=== PATIENT | female | born 1955 | race African-American/Black ===

== ENCOUNTER 2016-05-22 17:26 | Emergency (ER) | payer MEDICAID ==
[~2016-05-22] VITALS: Ht 167.6 cm; Wt 77.1 kg
[~2016-05-22 17:26] MED LIST: HYDR12.527 PO
[2016-05-22 17:52] VITALS: BP 116/82
== END 2016-05-22 19:17 | disposition home or self-care (01) ==
LOC: ER 17:43
DX: J40 Bronchitis, not specified as acute or chronic (principal); I10 Essential (primary) hypertension; R42 Dizziness and giddiness
CPT/HCPCS: 71020

== ENCOUNTER 2016-11-13 18:22 | Emergency (ER) | payer MEDICAID ==
[~2016-11-13] VITALS: Ht 167.6 cm; Wt 80.7 kg
[2016-11-13 18:42] VITALS: BP 100/72
== END 2016-11-13 19:55 | disposition home or self-care (01) ==
LOC: ER 18:26
DX: J32.9 Chronic sinusitis, unspecified (principal); N39.0 Urinary tract infection, site not specified; R05 Cough; I10 Essential (primary) hypertension; Z90.49 Acquired absence of other specified parts of digestive tract